=== PATIENT | female | born 1995 | race Asian ===

== ENCOUNTER 2016-09-27 23:22 | Emergency (ER) | payer OTHER ==
[2016-09-27 23:28] VITALS: BP 115/85; PULSE 83; RESP 16; TEMP 97.7; O2SAT 97
[2016-09-27] MEDS ORDERED: IBUPROFEN 200 MG TAB PO ONE (23:57)
--- NOTE | 2016-09-28 00:07 | EDPHY ---
H & P Time Seen by Provider: 09/27/16 23:34 HPI/ROS: CHIEF COMPLAINT: Right foot injury HISTORY OF PRESENT ILLNESS: 20-year-old female presents to the emergency department by private vehicle with right foot and ankle injury. Just prior to arrival patient states that her foot fell asleep and then she got up to walk on it and she rolled her right foot and ankle. She has pain in her right foot. She did not hit her head or lose consciousness. Denies any other trauma or injury. ROS: Denies pain in her right knee or right hip. Past Medical/Surgical History: Negative Social History: Single Smoking Status: Never smoked Physical Exam: On examination the patient has swelling to the dorsal lateral aspect of her right foot. She has reproducible pain with palpation to the dorsal lateral aspect of her right foot. However nontender to palpate over the base of the 5th metatarsal. Limited dorsi and plantar flexion secondary to pain. She has no pain with palpation over the medial lateral malleolus of the right ankle. Her right calf is nontender. Her gait is not tested due to pain. Normal sensation to light touch with normal 2 point discrimination. Strong dorsalis pedis pulse on the dorsal aspect of the right foot. Constitutional: Initial Vital Signs Temperature (C) 36.5 C 09/27/16 23:24 Heart Rate 83 09/27/16 23:24 Respiratory Rate 16 09/27/16 23:24 Blood Pressure 115/85 H 09/27/16 23:24 O2 Sat (%) 97 09/27/16 23:24 O2 Delivery Mode Room Air Allergies/Adverse Reactions: No Known Allergies Allergy (Unverified 09/27/16 23:28) Home Medications: Medication Instructions Recorded NK [No Known Home Meds] 09/27/16 MDM/Departure - MDM Diagnostics: Right ankle x-rays reveal no fractures. This is reviewed by myself the PACS system. Radiology interpretation to follow. Right foot x-rays reveal no fractures. This is reviewed by myself in the PACS system. Radiology interpretation to follow. Procedures: Patient was placed in Velcro ankle stirrup splint and examined post application in good placement with normal [employer]. Medications Given: Discontinued Medications Ibuprofen (Motrin) 400 mg PO EDNOW ONE Stop: 09/27/16 23:58 Last Admin: 09/28/16 00:22 Dose: 400 mg ED Course/Re-evaluation: 20-year-old female presents to the emergency department with right ankle and foot injury. X-rays reveal no fractures. She was placed in a Velcro ankle stirrup splint for comfort and support. She will weightbear as tolerated. She was given orthopedic referral and will follow up in 1 week. - Depart Disposition: Home, Routine, Self-Care Clinical Impression: Right foot sprain Qualifiers: Encounter type: initial encounter Qualifier Code: (S93.601A) Unspecified sprain of right foot, initial encounter Right ankle sprain Qualifiers: Encounter type: initial encounter Involved ligament of ankle: unspecified ligament Qualifier Code: (S93.401A) Sprain of unspecified ligament of right ankle, initial encounter Condition: Good Instructions: Foot Sprain (ED), Ankle Sprain (ED) Additional Instructions: Weight bear and activity as tolerated. Ibuprofen 400 mg every 8 hours as needed for pain. Ankle stirrup splint for comfort and support. Referrals: Lc Gonsalves MD [Medical Doctor] - 5-7 days, call for appt. (Orthopedic surgeon on-call)
--- NOTE | 2016-09-28 08:14 | DX ---
Right Foot , 3 views History:Pain post trauma. Rolled ankle. Findings: No fracture or dislocation is identified. Incidentally noted is a benign bone island in the head of the proximal phalanx of the second toe. Impression: Nothing acute identified.
--- NOTE | 2016-09-28 09:07 | DX ---
Right Ankle, Three Views Indication: Pain at the fifth metatarsal. Findings: No fracture or dislocation. Soft tissues are radiographically normal. Impression: Nothing acute radiographically.
== END 2016-09-28 01:38 | disposition home or self-care (01) ==
DX: S93.401A Sprain of unspecified ligament of right ankle, initial encounter (principal); S93.601A Unspecified sprain of right foot, initial encounter; W19.XXXA Unspecified fall, initial encounter
CPT/HCPCS: L4350

== ENCOUNTER 2018-07-26 16:03 | Emergency (ER) | payer OTHER ==
[2018-07-26] MEDS ORDERED: FAMOTIDINE 20 MG/NACL 50 ML IV ONE (16:30)
[2018-07-26] MEDS ORDERED: ONDANSETRON 4 MG/2 ML VIAL IVP ONE (16:30)
[2018-07-26] MEDS ORDERED: NS 1,000 ML IV ONE (16:30)
[2018-07-26 16:31] LABS: PLATELET COUNT 334 10^3/uL (150-400)
--- NOTE | 2018-07-26 16:36 | EDPHY ---
H & P Time Seen by Provider: 07/26/18 16:13 HPI/ROS: HPI Nausea, abdominal discomfort. 22-year-old female by private vehicle with her mother. This patient reports that she has felt nausea and fatigue for about the last 2 weeks. Yesterday her nausea was worsen yesterday evening she had several episodes of dry heaving over about a 10 min. But did not vomit. She states that her last meal was a small amount of food just before she came here about 20 min ago. She reports her last solid meal was yesterday at about lunchtime. She denies any diarrhea. Last bowel movement was yesterday. No bloody or melenic stool. Last menstrual period was July 18. No ill contacts. No change in diet. No foreign travel. She describes having mid upper abdominal aching and cramping which comes on intermittently. She also describes having a mild gradual onset frontal headache. ROS: Constitutional: No fever, no chills. No weakness. Eyes: No discharge. No changes in vision. ENT: No sore throat. No nasal congestion or rhinorrhea. Respiratory: No cough. No shortness of breath. Cardiac: No chest pain, no palpitations. Gastrointestinal: As above. Genitourinary: No hematuria. No dysuria or increased frequency with urination. Musculoskeletal: No back pain. No neck pain. No myalgias or arthralgias. Skin: No rashes. Neurological: As above. No focal weakness or altered sensation. Past medical history: No past medical history. Social history: Nonsmoker. No alcohol. Here with her mother. Physical Exam: General Appearance: Alert, no distress. This patient is responding to questions appropriately and in full sentences. This patient appears well- hydrated and well-nourished. Eyes: Pupils equal and round no pallor or injection. No lid edema, erythema or injection. Respiratory: There are no retractions, lungs are clear to auscultation with good air movement bilaterally. Cardiovascular: Regular rate and rhythm. No murmur. Gastrointestinal: Abdomen is soft and nontender, no masses, bowel sounds normal. No focal tenderness at McBurney's point. No Rodriguez sign. Neurological: Motor sensory function is grossly intact. Cranial nerves are normal. Gait is normal. Skin: Warm and dry, no rashes. Musculoskeletal: Neck is supple and nontender. No pain on flexion of her neck. Extremities are symmetrical. All joints range without pain or impingement. Psychiatric: No agitation. No depression. Database: EKG: Imaging: Right upper quadrant ultrasound: Normal. Results were discussed with staff radiologist Dr. Kevin Singh Procedures: Emergency department course: Triage vital signs reviewed and are normal. An IV was placed. She will be given 1 L of IV normal saline over the next hour. She will be given 4 mg of IV Zofran and 20 mg of IV Pepcid for her nausea. Right upper quadrant ultrasound imaging to be obtained. 5:30 p.m., awaiting results of ultrasound and urinalysis. Patient states that she still has nausea and has a headache. She will be given 25 mg of IV Benadryl , 10 mg of IV Reglan and 30 mg of IV Toradol. She has no contraindications to NSAIDs. She has a normal creatinine. She will be continued on IV normal saline with 500 cc to be given over the next hour. 6:00 p.m., the patient was re-evaluated. She is resting comfortably at this time. Repeat abdominal exam she is soft, nontender nondistended. Her headache has resolved. She has been taking oral fluids. Results of her emergency department workup discussed with her and her mother. She feels comfortable going home at this time and I feel she is safe for discharge. Follow-up and return to emergency department precautions reviewed with them. All of their questions were answered. The patient was discharged in good condition with her mother. Differential Diagnosis: The differential diagnosis on this patient includes but is not limited to viral syndrome, viral gastritis. Cholecystitis, pancreatitis, ulcerative gastritis, volvulus, other surgical etiology unlikely. This represents a partial list of diagnoses considered. These considerations are based on history, physical exam , past history, reassessment and diagnostic testing. Smoking Status: Never smoked Constitutional: Initial Vital Signs Temperature (C) 36.8 C 07/26/18 16:07 Heart Rate 79 07/26/18 16:07 Respiratory Rate 16 07/26/18 16:07 Blood Pressure 109/76 07/26/18 16:07 O2 Sat (%) 97 07/26/18 16:07 O2 Delivery Mode Room Air Allergies/Adverse Reactions: No Known Allergies Allergy (Unverified 07/26/18 16:05) Home Medications: Medication Instructions Recorded Lorazepam 07/26/18 Nexplanon 12/02/18 Ondansetron Odt [Zofran Odt 4 mg 4 mg PO Q4PRN PRN #10 tab 07/26/18 (*)] Prozac 10 MG (*) 07/26/18 Medical Decision Making - Diagnostics Imaging Results: Imaging Impressions Abdomen Ultrasound 07/26/18 16:31 Impression: No cholelithiasis or biliary ductal dilation. Findings and recommendations discussed with Emergency Department physician, Fay Joel MD at 17:52 hour, 07/26/2018. Final report concurs with initial preliminary interpretation. - Data Points Laboratory Results: Laboratory Results 07/26/18 16:21 07/26/18 16:21 07/26/18 07/26/18 07/26/18 16:21 16:21 16:21 WBC 9.81 10^3/uL H 10^3/uL (3.80-9.50) RBC 5.79 10^6/uL H 10^6/uL (4.18-5.33) Hgb 17.3 g/dL H g/dL (12.6-16.3) Hct 50.8 % H % (38.0-47.0) MCV 87.7 fL fL (81.5-99.8) MCH 29.9 pg pg (27.9-34.1) MCHC 34.1 g/dL g/dL (32.4-36.7) RDW 12.0 % % (11.5-15.2) Plt Count 334 10^3/uL 10^3/uL (150-400) MPV 8.3 fL L fL (8.7-11.7) Neut % (Auto) 66.4 % % (39.3-74.2) Lymph % (Auto) 26.7 % % (15.0-45.0) [place] % (Auto) 4.8 % % (4.5-13.0) Eos % (Auto) 1.4 % % (0.6-7.6) Baso % (Auto) 0.3 % % (0.3-1.7) Nucleat RBC Rel Count 0.0 % % (0.0-0.2) Absolute Neuts (auto) 6.51 10^3/uL H 10^3/uL (1.70-6.50) Absolute Lymphs (auto) 2.62 10^3/uL 10^3/uL (1.00-3.00) Absolute Monos (auto) 0.47 10^3/uL 10^3/uL (0.30-0.80) Absolute Eos (auto) 0.14 10^3/uL 10^3/uL (0.03-0.40) Absolute Basos (auto) 0.03 10^3/uL 10^3/uL (0.02-0.10) Absolute Nucleated RBC 0.00 10^3/uL 10^3/uL (0-0.01) Immature Gran % 0.4 % % (0.0-1.1) Immature Gran # 0.04 10^3/uL 10^3/uL (0.00-0.10) Sodium 142 mEq/L mEq/L (135-145) Potassium 3.8 mEq/L mEq/L (3.3-5.0) Chloride 105 mEq/L mEq/L (97-110) Carbon Dioxide 25 mEq/l mEq/l (22-31) Anion Gap 12 mEq/L mEq/L (6-14) BUN 14 mg/dL mg/dL (7-23) Creatinine 0.9 mg/dL mg/dL (0.6-1.0) Estimated GFR > 60 Glucose 63 mg/dL L mg/dL (70-100) Calcium 9.8 mg/dL mg/dL (8.5-10.4) Total Bilirubin 1.1 mg/dL mg/dL (0.1-1.4) Conjugated Bilirubin 0.1 mg/dL mg/dL (0.0-0.5) Unconjugated Bilirubin 1.0 mg/dL mg/dL (0.0-1.1) AST 23 IU/L IU/L (14-46) ALT 12 IU/L IU/L (9-52) Alkaline Phosphatase 59 IU/L IU/L (38-126) Total Protein 8.8 g/dL H g/dL (6.3-8.2) Albumin 5.2 g/dL H g/dL (3.5-5.0) Lipase 332 IU/L H IU/L (23-300) Beta HCG, Qual NEGATIVE Medications Given: Discontinued Medications Diphenhydramine HCl (Benadryl Injection) 25 mg IVP EDNOW ONE Stop: 07/26/18 17:32 Last Admin: 07/26/18 17:43 Dose: 25 mg Sodium Chloride (Ns) 1,000 mls @ 0 mls/hr IV EDNOW ONE; Wide Open PRN Reason: Protocol Stop: 07/26/18 16:31 Last Admin: 07/26/18 16:48 Dose: 1,000 mls Famotidine/Sodium Chloride (Pepcid 20 Mg (Premix)) 50 mls @ 200 mls/hr IV EDNOW ONE Stop: 07/26/18 16:44 Last Admin: 07/26/18 16:45 Dose: 50 mls Sodium Chloride (Ns) 500 mls @ 0 mls/hr IV ONCE ONE; Wide Open PRN Reason: Protocol Stop: 07/26/18 17:32 Last Admin: 07/26/18 17:44 Dose: 500 mls Ketorolac Tromethamine (Toradol) 30 mg IVP EDNOW ONE Stop: 07/26/18 17:32 Last Admin: 07/26/18 17:40 Dose: 30 mg Metoclopramide HCl (Reglan Injection) 10 mg IVP EDNOW ONE Stop: 07/26/18 17:32 Last Admin: 07/26/18 17:42 Dose: 10 mg Ondansetron HCl (Zofran) 4 mg IVP EDNOW ONE Stop: 07/26/18 16:31 Last Admin: 07/26/18 17:09 Dose: 4 mg Departure - Departure Disposition: Home, Routine, Self-Care Clinical Impression: Nausea, Abdominal pain Condition: Good Instructions: Acute Nausea and Vomiting (ED) Additional Instructions: Read and follow provided instructions. Follow-up with your primary care physician in 1-2 days for re-evaluation. Take medication as prescribed for nausea. Keep well hydrated. A good fluid to drink is Gatorade mixed with water in a 1- 1 dilution over ice. Return to the emergency department for worsening symptoms, worsening abdominal pain, vomiting and inability to keep fluids down despite medications or other serious concerns. Referrals: Onelia Acosta PA [Primary Care Provider] - As per Instructions Prescriptions: Ondansetron Odt [Zofran Odt 4 mg (*)] 4 mg PO Q4PRN PRN #10 tab PRN Reason: For Nausea & Vomiting
[2018-07-26] MEDS ORDERED: NS 500 ML IV ONE (17:31)
[2018-07-26] MEDS ORDERED: KETOROLAC 30 MG/1 ML SDV IVP ONE (17:31)
[2018-07-26] MEDS ORDERED: METOCLOPRAMIDE 10 MG/2 ML VIAL IVP ONE (17:31)
[2018-07-26] MEDS ORDERED: ONDANSETRON 4MG PREPACK#2 BTL TAKEHOME ONE (18:06)
[2018-07-26 18:43] VITALS: BP 94/68
== END 2018-07-26 18:43 | disposition home or self-care (01) ==
DX: R10.9 Unspecified abdominal pain (principal); R11.0 Nausea; E86.9 Volume depletion, unspecified
CPT/HCPCS: 96365; J1200; J1885; J2405; J2765

== ENCOUNTER → 2018-07-28 | Outpatient (CLI) | payer OTHER | LOC: BMCIMAGING 16:29 | PROVIDERS: ATTEND Physician Assistant | DX: K59.00 Constipation, unspecified (principal); R10.0 Acute abdomen ==

== ENCOUNTER 2018-07-31 11:20 | Emergency (ER) | payer OTHER ==
--- NOTE | 2018-07-31 12:22 | EDPHY ---
H & P Stated Complaint: generalized abd pain/seen friday and pcp ct showed ? constipation/no stool Source: Patient Exam Limitations: No limitations - Personal History LMP (Females 10-55): 15-21 Days Ago Current Tetanus Diphtheria and Acellular Pertussis (TDAP): Yes - Medical/Surgical History Hx Asthma: No Hx Chronic Respiratory Disease: No Hx Diabetes: No Hx Cardiac Disease: No Hx Renal Disease: No Hx Cirrhosis: No Hx Alcoholism: No Hx HIV/AIDS: No Hx Splenectomy or Spleen Trauma: No Other PMH: denies - Social History Smoking Status: Never smoked Time Seen by Provider: 07/31/18 12:21 HPI/ROS: HPI: This is a 22-year-old female who presents with Chief Complaint: generalized abd pain/seen friday and pcp ct showed ? constipation/no stool Location: Generalized abdomen Quality: Pain Duration: Since Friday Signs and Symptoms: no fever, + nausea, no vomiting, no hematemesis, no blood in stool, no abdominal bloating, no diarrhea, no back pain, no urinary symptoms , no vaginal bleeding/discharge, no indigestion, no chest pain, no shortness of breath Timing: Acute, constant Severity: Moderate Context: Patient has a history of depression, anxiety, Nexplanon presents with generalized abdominal pain since Friday, approximately 5 days ago. She was seen outpatient by primary care provider and had and limited abdominal ultrasound performed on 07/26/2018 that shows normal kidneys normal pancreas normal gallbladder. She then had an abdominal x-ray on 07/28/2018 performed that showed constipation and distended stomach suggesting a recent meal. She has been taking MiraLax for the last 3 days. She has not had a bowel movement in 3-4 days. She denies fever, vomiting, diarrhea, urinary symptoms. Modifying Factors: See above Comment: ROS: A comprehensive 10 system review of systems is otherwise negative aside from elements mentioned in the history of present illness. MEDICAL/SURGICAL/SOCIAL HISTORY: Medical history: Depression, anxiety. LMP 2-3 weeks ago. Nexplanon. Surgical history: Denies Social history: Never smoked. Family history noncontributory. CONSTITUTIONAL: Extremely well-appearing young adult female, awake and alert, no obvious distress HEENT: Atraumatic and normocephalic, PERRL, EOMI. Nares patent; no rhinorrhea; no nasal mucosal edema. Tympanic membranes clear. Oropharynx clear, no exudate and moist pink mucosa. Airway patent. No lymphadenopathy. No meningismus. Cardiovascular: Normal S1/S2, regular rate, regular rhythm, without murmur rub or gallop. PULMONARY/CHEST: Symmetrical and nontender. Clear to auscultation bilaterally. Good air movement. No accessory muscle usage. ABDOMEN: Soft, nondistended, mildly generalized abdominal tenderness, no rebound, no guarding, no peritoneal signs, no masses or organomegaly. No CVAT. Bowel sounds heard x4 quadrants. EXTREMITIES: 2/2 pulses, strength 5/5, no deformities, no clubbing, no cyanosis or edema. NEUROLOGICAL: no focal neuro deficits. GCS 15. SKIN: Warm and dry, no erythema. no rash. Good capillary refill. (Danuta Angel) Constitutional: Initial Vital Signs Temperature (C) 36.6 C 07/31/18 11:28 Heart Rate 78 07/31/18 11:28 Respiratory Rate 17 07/31/18 11:28 Blood Pressure 97/75 L 07/31/18 11:28 O2 Sat (%) 96 07/31/18 11:28 O2 Delivery Mode Room Air Allergies/Adverse Reactions: No Known Allergies Allergy (Verified 07/31/18 11:27) Home Medications: Medication Instructions Recorded Lorazepam 07/26/18 Nexplanon 07/26/18 Ondansetron Odt [Zofran Odt 4 mg 4 mg PO Q4PRN PRN #10 tab 07/26/18 (*)] Prozac 10 MG (*) 07/26/18 Dicyclomine [Bentyl 10 MG (*)] 10 mg PO QID PRN #10 cap 07/31/18 Ondansetron Odt [Zofran Odt 4 mg 4 mg PO Q4 PRN #12 tab 07/31/18 (*)] Spironolactone 07/31/18 Medical Decision Making ED Course/Re-evaluation: Vital signs reviewed and stable upon arrival. IV access and laboratory studies along with CT abdomen and pelvis scan ordered Given 1 L normal saline, IV Toradol and IV promethazine 1315: Labs reviewed. No signs of leukocytosis/anemia/platelet dysfunction/PEDRO/ elevated LFTs/electrolyte imbalance/pancreatitis/. 1430: Called by radiologist, Dr. Torres, who reports that CT abdomen and pelvis scan shows no acute intra-abdominal process including no appendicitis/ obstruction. Patient is showing constipation. 150 mL of magnesium citrate given This patient was seen under the supervision of my secondary supervising physician. I evaluated care for this patient independently. Discussed this patient with Dr. Castillo who did not see the patient. (Danuta Angel) The patient was evaluated and managed by the physician physical therapy assistant instructor. I have reviewed this chart and I agree with the findings and plan of care as documented , as indicated by my signature. I am the secondary supervising physician. ( Pallavi Castillo) Differential Diagnosis: Abdominal pain including but not limited to appendicitis, cholecystitis, gastritis and urinary tract infection. (Danuta Angel) - Data Points Laboratory Results: Laboratory Results 07/31/18 09:57 07/31/18 12:30 Medications Given: Discontinued Medications Sodium Chloride (Ns) 1,000 mls @ 0 mls/hr IV EDNOW ONE; Wide Open PRN Reason: Protocol Stop: 07/31/18 12:28 Last Admin: 07/31/18 12:34 Dose: 1,000 mls Ketorolac Tromethamine (Toradol) 30 mg IVP EDNOW ONE Stop: 07/31/18 12:28 Last Admin: 07/31/18 12:34 Dose: 30 mg Magnesium Citrate (Magnesium Citrate) 300 ml PO ONCE ONE Stop: 07/31/18 14:25 Last Admin: 07/31/18 14:28 Dose: 1 btl Promethazine HCl (Phenergan) 12.5 mg IVP EDNOW ONE Stop: 07/31/18 12:28 Last Admin: 07/31/18 12:34 Dose: 12.5 mg Departure - Departure Disposition: Home, Routine, Self-Care Clinical Impression: Constipation by delayed colonic transit Condition: Good Instructions: Dicyclomine (By mouth), Ondansetron (By mouth), Constipation (ED) , High Fiber Diet (ED) Additional Instructions: Consume a minimum of 8-10 glasses of water or electrolyte fluid replacement drinks that include Gatorade, Powerade, Pedialyte. Eat a bland diet for the next 48 hours and then slowly advance as tolerated. A heating pad to your lower abdomen as needed for abdominal cramping. Try to remain as active as possible. Take Zofran 1 tab every 4 hours as needed for nausea, vomiting. Take Magnesium Citrate 150 mL x1 and if no bowel movement in the next 6 hr, take the other 150 mL. Take Bentyl every 6 hr as needed for GI distress. Return to the Emergency Room if symptoms do not resolve in the next 72 hours, you spike a fever > 102 F, or experience intractable abdominal pain/nausea/ vomiting. Referrals: Onelia Acosta PA [Primary Care Provider] - 5-7 days, call for appt. Prescriptions: Dicyclomine [Bentyl 10 MG (*)] 10 mg PO QID PRN #10 cap PRN Reason: Gi Distress Ondansetron Odt [Zofran Odt 4 mg (*)] 4 mg PO Q4 PRN #12 tab PRN Reason: Nausea/Vomiting, Use 1st
[2018-07-31] MEDS ORDERED: NS 1,000 ML IV ONE (12:27)
[2018-07-31] MEDS ORDERED: KETOROLAC 30 MG/1 ML SDV IVP ONE (12:27)
[2018-07-31] MEDS ORDERED: PROMETHAZINE HCL 25 MG/ML INJ IVP ONE (12:27)
[2018-07-31 12:57] LABS: PLATELET COUNT 329 10^3/uL (150-400)
[2018-07-31] MEDS ORDERED: IOPAMIDOL (ISOVUE-300) 100 ML BTL ONE (13:06)
[2018-07-31] MEDS ORDERED: MAGNESIUM CITRATE 300 ML BOTTLE PO ONE (14:24)
[2018-07-31 14:43] VITALS: BP 100/75
== END 2018-07-31 14:43 | disposition home or self-care (01) ==
DX: K59.01 Slow transit constipation (principal); E86.9 Volume depletion, unspecified
CPT/HCPCS: 96374; J1885; J2550; Q9967